=== PATIENT | female | born 1995 | race Asian ===

== ENCOUNTER → 2017-07-22 | Outpatient (CLI) | payer OTHER ==
--- NOTE | 2017-07-22 15:01 | Diagnostic Imaging Report ---
PROCEDURE: Frontal and lateral views of the chest. COMPARISON: None. INDICATIONS: REACTIVE SKIN TEST, TUBERCULIN TEST FINDINGS: Lines/tubes: None. Lungs: The lungs are well inflated and clear. There is no evidence of pneumonia or pulmonary edema. Pleura: There is no pleural effusion or pneumothorax. Heart and mediastinum: The heart and the mediastinum are normal. Pulmonary vasculature is normal. Bones: No acute bony abnormality. IMPRESSION: 1. No acute cardiopulmonary dise abnormalities ase. Adam Delong M.D. Dictated by: Adam Delong M.D. on 07/22/2017 at 15:02 Electronically approved by: Adam Delong M.D. on 07/22/2017 at 15:02
== END ==
LOC: RAD 13:20
PROVIDERS: ATTEND Family Medicine
DX: R76.11 Nonspecific reaction to tuberculin skin test without active tuberculosis (principal)
CPT/HCPCS: 71046